=== PATIENT | female | born 1970 | race Caucasian/White ===

== ENCOUNTER 2021-02-24 06:59 | Day surgery (SDC) | payer BC ==
[2021-02-24] MEDS ORDERED: Propofol 200 MG/20 ML SDV ONE (07:04)
[2021-02-24] MEDS ORDERED: fentaNYL 100 MCG/2 ML SDV ONE (07:05)
[2021-02-24] MEDS ORDERED: Midazolam 1 MG/ML 2 ML SDV ONE (07:05)
[2021-02-24] MEDS ORDERED: Sodium Chloride 0.9% 1,000 ML IV SCH (07:30)
--- NOTE | 2021-02-24 10:17 | OR ---
DATE OF PROCEDURE: 02/24/2021 SURGEON: Shane Gonzalez MD PROCEDURE: Colonoscopy. FINDINGS: 1. Ascending colon polyp, approximately 5 mm, completely removed using cold biopsy forceps. 2. Rectal polyp, approximately 5 mm, completely removed using cold biopsy forceps. COMPLICATIONS: None. LAUNDERETTE ATTENDANT: None. ANESTHESIA: MAC. PREOPERATIVE DIAGNOSIS: Screening colonoscopy. POSTOPERATIVE DIAGNOSIS: Screening colonoscopy. RISKS: Risks, benefits, alternatives, and limitations including, but not limited to infection, bleeding, perforation, false positives and false negatives were explained to the patient and she wished to proceed. PROCEDURE IN DETAIL: The patient was placed in left lateral decubitus position. Digital rectal exam was performed without abnormality. Scope was introduced and advanced atraumatically to the ileocecal valve. A photo was taken of the appendiceal orifice. Scope was brought back to the ascending, transverse, descending colon, and retroflexed. The aforementioned polyps were identified and completely removed. No abnormal bleeding was noted after removal. No abnormalities on retroflexion. No diverticulosis. No colitis. Greater than 8 minutes was spent removing the scope. Prep was acceptable, approximately 90% of the luminal surface could be seen. The patient tolerated the procedure well. Shane Gonzalez MD /[id number]
== END 2021-02-24 10:17 | disposition home or self-care (01) ==
LOC: JP.SDS 06:59
PROVIDERS: ATTEND Surgery
DX: Z12.11 Encounter for screening for malignant neoplasm of colon (principal); K63.5 Polyp of colon; K62.1 Rectal polyp; Z91.040 Latex allergy status
CPT/HCPCS: 45380; J2250; J2704; J3010; J7030